=== PATIENT | female | born 1955 | race Caucasian/White ===

== ENCOUNTER → 2016-10-29 | Outpatient (CLI) | payer OTHER, BC ==
[~2016-10-29] VITALS: Ht 163.8 cm; Wt 81.2 kg
[~2016-10-29] MED LIST: ADDERALL10 MG PO; ALPRAZOLAM0.5 MG PO; CELEBREX200 MG PO; CONCERTA27 MG PO; GABAPENTIN300 MG PO; INDERAL20 MG PO; IRON325 M1 PO; LISINOPRIL10 MG PO; MAXALT10 MG PO; MS CONTIN,ORAMO15 M1 PO; MS CONTIN,ORAMO60 MG PO; OXYCODONE HCL10 MG PO; PRISTIQ50 MG PO; VITAMIN D2000 UNIT PO; WELLBUTRIN XL150 MG PO; ZOFRAN8 MG PO
== END | disposition home or self-care (01) ==
LOC: OPR 10:00 → EDSTATUS 10:00 → OPR 10:04
PROC: 0QB13ZX Excision of Sacrum, Percutaneous Approach, Diagnostic (ICD-10-PCS; principal; 2016-10-29)
DX: M89.9 Disorder of bone, unspecified (principal)
CPT/HCPCS: 77012; 85027; 85610; 85730; 88305; J3010